=== PATIENT | male | born 1955 | race Hispanic/Latino ===

== ENCOUNTER → 2018-06-15 | Outpatient (CLI) | payer BC ==
--- NOTE | 2018-06-16 09:26 | CT ---
EXAM: Abdoment/Pelvis w/o Contrast CLINICAL HISTORY: Z85.528 COMPARISON STUDY: CT abdomen pelvis June 10, 2014 and February 19, 2016 TECHNIQUE: Non-oral, non-IV contrast CT images were obtained through the abdomen and pelvis. Coronal reconstructions were acquired. FINDINGS: The visible portion of the chest shows clear lungs. The heart is not enlarged. The aorta is non-dilated. Solid organ evaluation is limited without IV contrast administration. The unenhanced images of the liver, spleen, pancreas, left adrenal gland and left kidney demonstrate no visible abnormality. The right kidney has been surgically removed. There is no recurrent or residual mass within the renal bed in no retroperitoneal lymphadenopathy. A 7 mm right adrenal gland nodules not changed from at least 4 years and is likely benign. The gallbladder is present. Bowel evaluation is limited without oral contrast administration. There is no bowel obstruction/dilatation. The appendix is visible and negative. There are no mesenteric inflammatory changes. Mild prostate calcifications are present. There is no pelvic adenopathy. Moderate to severe degenerative changes are present at the lower lumbar spine with anterior spondylolisthesis of L4-5, 6 mm and stable. CONCLUSION: 1. 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 2. No acute intra-abdominal/pelvic abnormality. 3. Degenerative changes of the lower lumbar spine and a 6 mm spondylolisthesis at L4-5 causes canal and bilateral exiting foraminal stenosis. This exam was performed according to our departmental dose-optimization program, which includes automated exposure control, adjustment of the mA and/or kV according to patient size and/or use of iterative reconstruction technique. . Electronically signed by: Lyle Mendez MD 06/16/2018 9:24 AM [employer]
== END ==
LOC: CT 08:52
PROVIDERS: ATTEND General Practice
DX: Z85.528 Personal history of other malignant neoplasm of kidney (principal); Z90.5 Acquired absence of kidney; M43.16 Spondylolisthesis, lumbar region